=== PATIENT | female | born 1980 | race Caucasian/White ===

== ENCOUNTER 2016-09-30 17:51 | Emergency (ER) | payer SELFPAY ==
[2016-09-30 18:08] LABS: BASOPHIL 0.4 % (0-2); EOSINOPHIL 3.1 % (0-5); HCT 42.9 % (37.0-47.0); HGB 15.2 g/dl (12.5-16.0); LYMPHOCYTE 42.3 % (15-48); MCH 31.5 pg (25.0-31.0); MCHC 35.4 g/dL (32.0-36.0); MONOCYTE 6.5 % (0-12); MPV 10.8 fL (6.0-9.5); NEUTROPHIL 47.7 % (41-80); PLT 233 K/uL (150-400); RBC 4.82 M/uL (4.20-5.40); RDW 13.7 % (11.5-14.0); WBC 8.1 K/uL (4.0-10.5)
[2016-09-30 18:16] LABS: INR 0.98 (0.9-1.2); PROTHROMBIN TIME 12.6 SECONDS (11.7-14.0)
[2016-09-30 18:17] LABS: PTT 30.2 SECONDS (23.2-31.4)
[2016-09-30 18:25] LABS: CKMB 1.75 ng/mL (0.97-4.94); MYOGLOBIN 21 ng/mL (26-65); TROPONIN T < 0.010 ng/mL
[2016-09-30 18:26] LABS: ALBUMIN 4.5 g/dL (3.5-5.0); BILIRUBIN - TOTAL 0.3 mg/dL (0.1-1.0); CREATININE 0.7 mg/dL (0.5-1.0); GLOBULIN (CALCULATION) 2.7 g/dL (2.2-4.2); POTASSIUM 4.1 mmol/L (3.5-5.1); TOTAL PROTEIN 7.2 g/dL (6.4-8.3)
== END 2016-09-30 20:32 | disposition home or self-care (01) ==
LOC: FER 17:51
PROVIDERS: Internal Medicine
DX: R20.2 Paresthesia of skin (principal); R51 Headache; R29.700 NIHSS score 0; J45.909 Unspecified asthma, uncomplicated; Z86.73 Personal history of transient ischemic attack (TIA), and cerebral infarction without residual deficits; Z88.0 Allergy status to penicillin; Z88.5 Allergy status to narcotic agent
CPT/HCPCS: 36415; 70450; 71010; 80053; 80061; 82550; 82553; 83874; 84484; 85025; 85610; 85730; 93005; J1885; J2765

== ENCOUNTER 2016-12-01 19:38 | Emergency (ER) | payer SELFPAY | END 2016-12-01 22:23 | disposition home or self-care (01) | LOC: FER 19:38 | DX: G43.909 Migraine, unspecified, not intractable, without status migrainosus (principal); F17.210 Nicotine dependence, cigarettes, uncomplicated; Z86.73 Personal history of transient ischemic attack (TIA), and cerebral infarction without residual deficits; Z88.0 Allergy status to penicillin; Z88.5 Allergy status to narcotic agent | CPT/HCPCS: J1100; J1170; J1885 ==